=== PATIENT | male | born 1990 | race Caucasian/White ===

== ENCOUNTER 2018-02-13 22:44 | Emergency (ER) | payer OTHER ==
[2018-02-13 22:50] VITALS: BP 161/89; PULSE 108; TEMP 98.1; BMI 31.5
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
[2018-02-14 00:44] LABS: URINE APPEARANCE CLEAR; URINE BILIRUBIN NEGATIVE (<2.0 mg/dL); URINE COLOR YELLOW; URINE GLUCOSE (UA) NEGATIVE (NEGATIVE); URINE KETONE NEGATIVE (NEGATIVE); URINE LEUK ESTERASE TRACE (NEGATIVE); URINE NITRITE NEGATIVE (NEGATIVE); URINE PROTEIN NEGATIVE (NEGATIVE)
[2018-02-14 01:02] LABS: BASO % 0.6 % (0-2.0); EOS % 1.8 % (0-4.5); HEMATOCRIT 44.8 % (35.4-49); INR 1.09 (0.82-1.09); LYMPH % 24.9 % (8-40); MCH 27.4 pg (25.7-33.7); MCHC 33.5 g/dl (32.0-35.9); MEAN PLT VOLUME 8.4 fl (7.5-11.1); MONO % 10.2 % (3.8-10.2); NEUT % 62.5 % (42.8-82.8); PLATELET COUNT 196 K/MM3 (134-434); PROTHROMBIN TIME (PATIENT) 12.3 SEC (9.7-13.0); RBC 5.46 M/mm3 (4.00-5.60); RDW 13.2 % (11.9-15.9); URINE MUCUS RARE; WHITE BLOOD COUNT 5.1 K/mm3 (4.0-10.0)
[2018-02-14 01:17] LABS: ALBUMIN 3.9 g/dl (3.4-5.0); ANION GAP 4 (8-16); BILIRUBIN,TOTAL 0.4 mg/dL (0.2-1.0); BLOOD UREA NITROGEN 21 mg/dL (7-18); CHLORIDE 104 mmol/L (98-107); CO2 32 mmol/L (21-32); CREATININE 1.3 mg/dL (0.7-1.3); GLUCOSE,RANDOM 102 mg/dL (74-106); POTASSIUM 3.9 mmol/L (3.5-5.1); SGOT/AST 10 U/L (15-37); SGPT/ALT 18 U/L (12-78); SODIUM 140 mmol/L (136-145); TOT PROT 7.2 g/dl (6.4-8.2)
[2018-02-14 01:18] LABS: ALK PHOS 74 U/L (45-117)
[2018-02-14 01:33] LABS: COCAINE, UR NEGATIVE ng/ml (CUTOFF=300); METHADONE, UR NEGATIVE ng/ml (CUTOFF=300); OPIATES, URI NEGATIVE ng/ml (CUTOFF=300); PHENCYCLIDINE,URINE NEGATIVE ng/ml (CUTOFF=25); URINE AMPHETAMINES NEGATIVE ng/ml (CUTOFF=500); URINE BARBITURATES NEGATIVE ng/ml (CUTOFF=200); URINE BENZODIAZEPINES NEGATIVE ng/ml (CUTOFF=200)
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
--- NOTE | 2018-02-14 11:54 | EKG ---
Test Reason : Blood Pressure : / mmHG Vent. Rate : 081 BPM Atrial Rate : 081 BPM P-R Int : 148 ms QRS Dur : 104 ms QT Int : 374 ms P-R-T Axes : 061 032 051 degrees QTc Int : 434 ms NORMAL SINUS RHYTHM NORMAL ECG NO PREVIOUS ECGS AVAILABLE Confirmed by MD SHAUN, JAYDA ([id number]) on 02/14/2018 11:53:45 AM Referred By: Confirmed By:JAYDA DUNN MD
[2018-02-16 10:13] LABS: BENZODIAZEPINES, UR Negative ng/mL (Cutoff=200); CANNABINOIDS, URINE See Final Results ng/mL (Cutoff=20); METHADONE, URINE Negative ng/mL (Cutoff=300); OPIATES, UR Negative ng/mL (Cutoff=300); PHENCYCLIDINE, URINE Negative ng/mL (Cutoff=25)
== END 2018-02-14 04:03 | disposition home or self-care (01) ==
LOC: JER 22:44
DX: R06.02 Shortness of breath (principal); R42 Dizziness and giddiness; R25.1 Tremor, unspecified
CPT/HCPCS: 71045-TC-FY; 71046-TC-FY; 80053; 80307; 81003; 81015; 82550; 84443; 84484; 85025; 85610; 93005; 93010; 99283-25